=== PATIENT | male | born 1960 | race American Indian/Alaskan Native ===

== ENCOUNTER 2017-12-22 10:57 | Emergency (ER) | payer OTHER ==
[2017-12-22] MEDS ORDERED: Aspirin 81 MG Tab.Chew PO ONE (11:10)
[2017-12-22] MEDS ORDERED: Aspirin 81 MG Tab.Chew ONE (11:15)
[2017-12-22] MEDS ORDERED: Sodium Chloride 0.9% 10 ML Syringe FLUSH PRN (11:22)
[2017-12-22 11:38] LABS: CHLORIDE,CL 100 mmol/L (101-111); SODIUM,NA 131 mmol/L (135-145)
[2017-12-22] MEDS ORDERED: Insulin Regular, Human 100 Units/ML 3 ML Vial IV ONE (11:48)
--- NOTE | 2017-12-22 11:48 | CR ---
Clinical history: 57-year-old male chest pain. Interpretation: Upright AP portable chest film negative. External [employer] member leads. Normal cardiac silhouette without cephalization of vascular flow, signs of alveolar edema or dependen t pleural effusion. No new lung mass, hilar lymphadenopathy or focal lobar pneumonia when compared to 05 December 2008 exa m. No atelectasis/collapse. No pneumothorax. CONCLUSION: No acute new cardiopulmonary abnormality.
--- NOTE | 2017-12-22 12:03 | EDM.PDOC ---
ED HPI GENERAL MEDICAL PROBLEM - General Chief Complaint: Chest Pain Stated Complaint: CHEST PAINS, FROM [facility] Time Seen by Provider: 12/22/17 11:20 Source of Information: Reports: Patient, Family, RN, RN Notes Reviewed History Limitations: Reports: No Limitations - History of Present Illness INITIAL COMMENTS - FREE TEXT/NARRATIVE: Pt presents to the ER with c/o pain to the left chest wall. He states he has been having these pains on and off, a few times a month. He states this morning while sitting and watching TV he developed chest pain. He states the pain goes away on its own, but is painful while it is there. He states he has a small white pill that he was given at [facility] for chest pain, but he ran out of them. Pt denies any problems with stress, depression, or anxiety. Pt denies any cough, fever or chills, N/V/D. Onset: Sudden Onset Date: 12/22/17 Onset Time: 07:30 Left Upper Chest Pain Score (Numeric/FACES): 6 - Related Data Allergies Allergy/AdvReac Type Severity Reaction Status Date / Time No Known Allergies Allergy Verified 12/22/17 11:18 Home Meds: Home Meds Aspirin [Halfprin] 81 mg PO DAILY 12/22/17 [History] Famotidine 20 mg PO BID 12/22/17 [History] Insulin Detemir [Levemir Flextouch] 10 units SUBCUT DAILY 12/22/17 [History] Lisinopril 20 mg PO DAILY 12/22/17 [History] metFORMIN [Glucophage XR] 500 mg PO BID 12/22/17 [History] Social & Family History - Tobacco Use Smoking Status *Q: Never Smoker Second Hand Smoke Exposure: No - Recreational Drug Use Recreational Drug Use: No ED ROS GENERAL - Review of Systems Review Of Systems: ROS reveals no pertinent complaints other than HPI. ED EXAM, GENERAL - Physical Exam Exam: See Below Exam Limited By: No Limitations General Appearance: Alert, WD/WN, Mild Distress Eye Exam: Bilateral Eye: EOMI, Normal Inspection, PERRL Ears: Normal External Exam, Hearing Grossly Normal Nose: Normal Inspection Throat/Mouth: Normal Inspection, Normal Voice, No Airway Compromise Head: Atraumatic, Normocephalic Neck: Normal Inspection, Supple, Non-Tender, Full Range of Motion Respiratory/Chest: No Respiratory Distress, Lungs Clear, Normal Breath Sounds, No Accessory Muscle Use, Chest Non-Tender Cardiovascular: Normal Peripheral Pulses, Regular Rate, Rhythm, No Edema, No Gallop, No JVD, No Murmur, No Rub Peripheral Pulses: 2+: Radial (L), Radial (R) GI/Abdominal: Normal Bowel Sounds, Soft, Non-Tender, No Distention (Male) Exam: Deferred Rectal (Males) Exam: Deferred Back Exam: Normal Inspection, Full Range of Motion Extremities: Normal Inspection, Normal Range of Motion, Non-Tender, No Pedal Edema, Normal Capillary Refill Neurological: Alert, Oriented, CN II-XII Intact, Normal Cognition, Normal Gait, Normal Reflexes, No Motor/Sensory Deficits Psychiatric: Normal Affect, Normal Mood Skin Exam: Warm, Dry, Intact, Normal Color, No Rash Lymphatic: No Adenopathy Course - Vital Signs Last Recorded V/S: Last Vital Signs Temp 97.4 F 12/22/17 11:18 Pulse 73 12/22/17 11:18 Resp 10 L 12/22/17 11:18 BP 151/91 H 12/22/17 11:18 Pulse Ox 94 L 12/22/17 11:18 - Orders/Labs/Meds Orders: Active Orders 24 hr Category Date Time Status EKG Documentation Completion [RC] STAT Care 12/22/17 11:22 Active Peripheral IV Care [RC] . DIRECTED Care 12/22/17 11:22 Active Sodium Chloride 0.9% [Saline Flush] Med 12/22/17 11:22 Active 10 ml FLUSH ASDIRECTED PRN Peripheral IV Insertion Adult [OM.PC] Stat Oth 12/22/17 11:22 Ordered Medication Orders Sodium Chloride (Saline Flush) 10 ml FLUSH ASDIRECTED PRN PRN Reason: Keep Vein Open Last Admin: 12/22/17 11:10 Dose: 10 ml Labs: Laboratory Tests 12/22/17 12/22/17 12/22/17 Range/Units 11:14 11:14 11:14 WBC 4.9 L (5.0-10.0) 10^3/uL RBC 4.82 (4.6-6.2) 10^6/uL Hgb 14.3 (14.0-18.0) g/dL Hct 41.1 (40.0-54.0) % MCV 85.3 (80-100) fL MCH 29.7 (27.0-34.0) pg MCHC 34.8 (33.0-35.0) g/dL Plt Count 195 (150-450) 10^3/uL Neut % (Auto) 51.9 (42.2-75.2) % Lymph % (Auto) 36.0 (20.5-50.1) % [place] % (Auto) 8.6 H (2-8) % Eos % (Auto) 2.9 (1.0-3.0) % Baso % (Auto) 0.6 (0.0-1.0) % Sodium 131 L (135-145) mmol/L Potassium 3.8 (3.6-5.0) mmol/L Chloride 100 L (101-111) mmol/L Carbon Dioxide 21.0 (21.0-31.0) mmol/L Anion Gap 13.8 BUN 14 (7-18) mg/dL Creatinine 0.8 (0.6-1.3) mg/dL Est Cr Clr Drug Dosing 124.70 mL/min Estimated GFR (MDRD) > 60 BUN/Creatinine Ratio 17.50 Glucose 372 H (74-105) mg/dL Calcium 9.4 (8.4-10.2) mg/dl Total Bilirubin 0.6 (0.2-1.0) mg/dL AST 45 H (10-42) IU/L ALT 63 H (10-60) IU/L Alkaline Phosphatase 86 (42-121) IU/L Creatine Kinase 122 (26-174) IU/L Creatine Kinase Index 2.4 (0-2.4) % CK-MB (CK-2) 2.90 (0.4-4.7) ng/mL Troponin I < 0.02 (0.00-0.02) ng/ml Total Protein 7.6 (6.7-8.2) g/dl Albumin 4.3 (3.2-5.5) g/dl Globulin 3.3 Albumin/Globulin Ratio 1.30 Urine Color (YELLOW) Urine Appearance (CLEAR) Urine pH (5.0-9.0) Ur Specific Rock (1.005-1.030) Urine Protein (NEGATIVE) Urine Glucose (UA) (NEGATIVE) Urine Ketones (NEGATIVE) Urine Occult Blood (NEGATIVE) Urine Nitrite (NEGATIVE) Urine Bilirubin (NEGATIVE) Urine Urobilinogen (0.2-1.0) mg/dL Ur Leukocyte Esterase (NEGATIVE) Urine RBC /HPF Urine WBC (0-5/HPF) /HPF Ur Epithelial Cells /HPF Urine Bacteria (0-FEW/HPF) /HPF Urine Opiates Screen (NEGATIVE) Ur Oxycodone Screen (NEGATIVE) Urine Methadone Screen (NEGATIVE) Ur Barbiturates Screen (NEGATIVE) U Tricyclic Antidepress (NEGATIVE) Ur Phencyclidine Scrn (NEGATIVE) Ur Amphetamine Screen (NEGATIVE) U Methamphetamines Scrn (NEGATIVE) Urine MDMA Screen (NEGATIVE) U Benzodiazepines Scrn (NEGATIVE) Urine Cocaine Screen (NEGATIVE) U Marijuana (THC) Screen (NEGATIVE) Ethyl Alcohol < 5 mg/dL 12/22/17 12/22/17 Range/Units 12:06 12:06 WBC (5.0-10.0) 10^3/uL RBC (4.6-6.2) 10^6/uL Hgb (14.0-18.0) g/dL Hct (40.0-54.0) % MCV (80-100) fL MCH (27.0-34.0) pg MCHC (33.0-35.0) g/dL Plt Count (150-450) 10^3/uL Neut % (Auto) (42.2-75.2) % Lymph % (Auto) (20.5-50.1) % [place] % (Auto) (2-8) % Eos % (Auto) (1.0-3.0) % Baso % (Auto) (0.0-1.0) % Sodium (135-145) mmol/L Potassium (3.6-5.0) mmol/L Chloride (101-111) mmol/L Carbon Dioxide (21.0-31.0) mmol/L Anion Gap BUN (7-18) mg/dL Creatinine (0.6-1.3) mg/dL Est Cr Clr Drug Dosing mL/min Estimated GFR (MDRD) BUN/Creatinine Ratio Glucose (74-105) mg/dL Calcium (8.4-10.2) mg/dl Total Bilirubin (0.2-1.0) mg/dL AST (10-42) IU/L ALT (10-60) IU/L Alkaline Phosphatase (42-121) IU/L Creatine Kinase (26-174) IU/L Creatine Kinase Index (0-2.4) % CK-MB (CK-2) (0.4-4.7) ng/mL Troponin I (0.00-0.02) ng/ml Total Protein (6.7-8.2) g/dl Albumin (3.2-5.5) g/dl Globulin Albumin/Globulin Ratio Urine Color Yellow (YELLOW) Urine Appearance Clear (CLEAR) Urine pH 6.0 (5.0-9.0) Ur Specific [place] 1.015 (1.005-1.030) Urine Protein Negative (NEGATIVE) Urine Glucose (UA) 500 H (NEGATIVE) Urine Ketones Negative (NEGATIVE) Urine Occult Blood Negative (NEGATIVE) Urine Nitrite Negative (NEGATIVE) Urine Bilirubin Negative (NEGATIVE) Urine Urobilinogen 0.2 (0.2-1.0) mg/dL Ur Leukocyte Esterase Negative (NEGATIVE) Urine RBC 0-5 /HPF Urine WBC 0-5 (0-5/HPF) /HPF Ur Epithelial Cells Rare /HPF Urine Bacteria Rare (0-FEW/HPF) /HPF Urine Opiates Screen Negative (NEGATIVE) Ur Oxycodone Screen Negative (NEGATIVE) Urine Methadone Screen Negative (NEGATIVE) Ur Barbiturates Screen Negative (NEGATIVE) U Tricyclic Antidepress Negative (NEGATIVE) Ur Phencyclidine Scrn Negative (NEGATIVE) Ur Amphetamine Screen Negative (NEGATIVE) U Methamphetamines Scrn Negative (NEGATIVE) Urine MDMA Screen Negative (NEGATIVE) U Benzodiazepines Scrn Negative (NEGATIVE) Urine Cocaine Screen Negative (NEGATIVE) U Marijuana (THC) Screen Negative (NEGATIVE) Ethyl Alcohol mg/dL Meds: Medications Generic Name Dose Route Start Last Admin Trade Name Freq PRN Reason Stop Dose Admin Sodium Chloride 10 ml 12/22/17 11:22 12/22/17 11:10 Saline Flush FLUSH 10 ml ASDIRECTED PRN Administration Keep Vein Open Discontinued Medications Generic Name Dose Route Start Last Admin Trade Name Freq PRN Reason Stop Dose Admin Aspirin Confirm 12/22/17 11:15 12/22/17 11:28 Aspirin Administered 12/22/17 11:16 Not Given Dose 324 mg .ROUTE .STK-MED ONE Aspirin 324 mg 12/22/17 11:10 12/22/17 11:10 Aspirin PO 12/22/17 11:11 324 mg ONETIME ONE Administration Insulin Human Regular 10 unit 12/22/17 11:48 12/22/17 12:02 Humulin R IV 12/22/17 11:49 10 units ONETIME ONE Administration Protocol - Radiology Interpretation Free Text/Narrative:: Chest xray: No acute findings See rad report Departure - Departure Time of Disposition: 12:39 Disposition: Home, Self-Care 01 Condition: Fair Clinical Impression: Nonspecific chest pain Instructions: Nonspecific Chest Pain, [id number], Angina Pectoris, Easy-to- Read Forms: ED Department Discharge Additional Instructions: You will be contacted by the referral department at [facility] to set up a stress test. You already have an appointment set up with Dr. Rangel on January 18, be sure to go to this appointment. Drink plenty of water - My Orders Last 24 Hours: My Active Orders 12/22/17 11:22 EKG Documentation Completion [RC] STAT Peripheral IV Care [RC] . DIRECTED Sodium Chloride 0.9% [Saline Flush] 10 ml FLUSH ASDIRECTED PRN Peripheral IV Insertion Adult [OM.PC] Stat - Assessment/Plan Last 24 Hours: My Active Orders 12/22/17 11:22 EKG Documentation Completion [RC] STAT Peripheral IV Care [RC] . DIRECTED Sodium Chloride 0.9% [Saline Flush] 10 ml FLUSH ASDIRECTED PRN Peripheral IV Insertion Adult [OM.PC] Stat
--- NOTE | 2017-12-23 12:25 | EKG ---
12/22/2017 - TWILA PERES R - FINDINGS: A 12-lead EKG shows normal sinus rhythm with a heart rate of 66. No significant ST elevation or ST depression noted on this 12-lead EKG except for nonspecific T-wave changes noted on lead V2 and V3. [facility] /[id number]
== END 2017-12-22 12:58 | disposition home or self-care (01) ==
LOC: DL.ED 10:57
DX: R07.89 Other chest pain (principal); Z79.82 Long term (current) use of aspirin; Z79.4 Long term (current) use of insulin; Z79.899 Other long term (current) drug therapy
CPT/HCPCS: 36415; 71045; 80053; 80305; 81001; 82550; 82553; 82962; 84484; 85025; 93005; 96374; 99285; A9270; G0480; J1815; J7050

== ENCOUNTER 2023-06-30 09:59 | Emergency (ER) | payer MEDICAID, OTHER ==
[2023-06-30 10:25] LABS: BASOPHILS PERCENT AUTO 0.6 % (0.0-1.0); EOSINOPHILS PERCENT AUTO 2.8 % (1.0-3.0); HEMATOCRIT 40.8 % (40.0-54.0); HEMOGLOBIN 13.9 g/dL (14.0-18.0); LYMPHOCYTES PERCENT AUTO 33.1 % (20.5-50.1); MEAN CORPUSCULAR HEMOGLOBIN 29.8 pg (27.0-34.0); MEAN CORPUSCULAR HGB CONC 34.1 g/dL (33.0-35.0); MEAN CORPUSCULAR VOLUME 87.6 fL (80-100); MONOCYTES PERCENT AUTO 10.5 % (2-8); PLATELET COUNT,PLT 213 10^3/uL (150-450); RED BLOOD CELL COUNT 4.66 10^6/uL (4.6-6.2); WHITE BLOOD CELL COUNT,WBC 5.3 10^3/uL (5.0-10.0)
[2023-06-30 10:47] LABS: A/G RATIO 1.1; ALBUMIN 3.9 g/dL (3.4-5.0); ANION GAP 13.7 mEq/L (7-13); BILIRUBIN TOTAL 0.4 mg/dL (0.2-1.0); BUN/CREATININE RATIO 16.5 (No establ ref range); CALCIUM 9.6 mg/dL (8.5-10.1); CREATININE 1.03 mg/dL (0.70-1.30); EST CRCL DRUG DOSING (CG) 87.56 mL/min; POTASSIUM,K 3.7 mmol/L (3.5-5.1); PROTEIN TOTAL,TP 7.6 g/dL (6.4-8.2)
[2023-06-30] MEDS: Nitroglycerin 0.4 MG Tab.SL SL ONE (11:01)
== END 2023-06-30 13:51 | disposition home or self-care (01) ==
LOC: DL.ED 09:59
DX: R07.9 Chest pain, unspecified (principal); Z88.0 Allergy status to penicillin; Z88.2 Allergy status to sulfonamides
CPT/HCPCS: 36415; 80053; 84484; 85025; 93005; 93010; 99284; 99285; A9270

== ENCOUNTER 2024-08-22 06:17 | Day surgery (SDC) | payer MEDICAID ==
[~2024-08-22 06:17] MED LIST: Midazolam 1 MG/ML 2 ML SDV ONE; fentaNYL 100 MCG/2 ML SDV ONE
[2024-08-22] MEDS ORDERED: Midazolam 1 MG/ML 2 ML SDV IV ONE (06:18)
[2024-08-22] MEDS ORDERED: fentaNYL 100 MCG/2 ML SDV IV ONE (06:18)
[2024-08-22] MEDS: Dextrose 5%-0.45% NaCl 1,000 ML IV SCH (06:41)
[2024-08-22] MEDS: fentaNYL 100 MCG/2 ML SDV IV ONE ×2 (07:37→07:38)
[2024-08-22] MEDS: Midazolam 1 MG/ML 2 ML SDV IV ONE ×2 (07:38→07:39)
== END 2024-08-22 09:40 | disposition home or self-care (01) ==
LOC: DL.ENDO 06:17
PROVIDERS: ATTEND Internal Medicine Gastroenterology
DX: K31.A0 Gastric intestinal metaplasia, unspecified (principal); K31.89 Other diseases of stomach and duodenum; I10 Essential (primary) hypertension; E11.9 Type 2 diabetes mellitus without complications; K62.5 Hemorrhage of anus and rectum
CPT/HCPCS: 43239; 87077; J2250; J3010; J7799

== ENCOUNTER 2024-08-23 06:08 | Day surgery (SDC) | payer MEDICAID ==
[2024-08-23] MEDS: Dextrose 5%-0.45% NaCl 1,000 ML IV SCH (06:25)
[2024-08-23] MEDS ORDERED: Midazolam 1 MG/ML 2 ML SDV ONE (06:26)
[2024-08-23] MEDS ORDERED: fentaNYL 100 MCG/2 ML SDV ONE (06:26)
[2024-08-23] MEDS: Midazolam 1 MG/ML 2 ML SDV IV ONE ×5 (06:45→07:00)
[2024-08-23] MEDS: fentaNYL 100 MCG/2 ML SDV IV ONE ×2 (06:45)
[2024-08-23] MEDS: Aspirin 81 MG Tab.Chew PO ONE (07:59)
== END 2024-08-23 08:20 | disposition other institution (70) ==
LOC: DL.ENDO 06:08
PROVIDERS: ATTEND Internal Medicine Gastroenterology
DX: K62.5 Hemorrhage of anus and rectum (principal); R13.10 Dysphagia, unspecified; I10 Essential (primary) hypertension; E11.9 Type 2 diabetes mellitus without complications; K21.9 Gastro-esophageal reflux disease without esophagitis
CPT/HCPCS: 36415; 84484; 93005; A9270-GY; J2250; J3010; J7799

== ENCOUNTER 2024-08-23 08:17 | Emergency (ER) | payer MEDICAID | END 2024-08-23 09:50 | disposition home or self-care (01) | LOC: DL.ED 08:17 | DX: R07.9 Chest pain, unspecified (principal); I10 Essential (primary) hypertension; E78.00 Pure hypercholesterolemia, unspecified; K21.9 Gastro-esophageal reflux disease without esophagitis; E11.9 Type 2 diabetes mellitus without complications; Z86.16 Personal history of COVID-19; Z79.82 Long term (current) use of aspirin; Z79.4 Long term (current) use of insulin; Z79.84 Long term (current) use of oral hypoglycemic drugs; Z79.899 Other long term (current) drug therapy | CPT/HCPCS: 36415; 84484; 93010; 99284; 99285 ==